=== PATIENT | male | born 1995 ===

== ENCOUNTER 2024-06-15 09:15 | Outpatient (RCR) | payer OTHER, SELFPAY ==
[2024-06-01 13:22] VITALS: BMI 39.6
[2024-06-01 13:23] VITALS: BP 128/82; PULSE 72; TEMP 37
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
--- NOTE | 2024-06-07 10:36 | HO.PHP ---
Matt is not scheduled for the program today due to having a dentist appointment that interfered. Matt will be in attendance to program tomorrow.
--- NOTE | 2024-06-09 12:53 | PC.NURSE ---
New PCP appointment on July 01, 2024 at 1:00 pm at [facility]. [address]. [address]. [address]. Office # [phone]. CALL OFFICE 5 DAYS PRIOR TO SET UP PT1 TRANSPORTATION.
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
--- NOTE | 2024-06-14 10:10 | HO.PHP ---
Matt was contacted via telephone by communications writer when he did not arrive for programming this morning. Matt answered his 's phone (the number listed for his emergency contact). Matt stated he has an appointment today so would not be able to come in for programming, stated he forgot to tell us. Pt reports he is safe, no safety concerns expressed. Pt clear, alert, forthcoming. Pt apologized and stated he will be in tomorrow for group.
--- NOTE | 2024-06-14 23:48 | PM.EVENT ---
Event Note Date of Service: 06/15/24 Event Note: Patient scheduled for follow-up today but had called out of program in the morning reportedly due to having an appointment. Will plan to follow up later in the week. Time Spent With Patient Time: Total time managing care of this patient today ____ minutes.
--- NOTE | 2024-06-15 11:37 | P.PNPSP_ITS ---
Subjective Subjective Date of Service: 06/15/24 Reason For Visit: schizoaffective d/o Medication Compliance: Yes Side effects from medications: No Attending Groups: Yes Review of Systems Patient seen for follow-up. Anticipates discharge at end of the day. He has medical and dental appointments in the next 2 days making transportation to the program difficulty. He says he is doing better . Today is a good day . He made medication changes: Abilify 10 mg which he continues taking in the AM and says he feels more balanced through the day. I had to walk past that richie yesterday and I didnt feel bothered . He says he is feeling more positive and woke up in a good mood. He continues to experience voices on and off through the day, but says they are less bothersome, denies CTAH. Severity at a 6 or 6.5 out of 10 down from an 8.5 on admission. He started on prazosin last night and slept through the night, denies having any nighmares thus far. Denies adverse effects from the med changes. He has had some bouts of diarrhea, but is not sure if this is med related. His ZOloft is noted to be at 200 mg, this was increased a few months ago. It could be related to the SSRI however he feels this was a helpful change and is reluctant to lower it. I suggest he could try for 2 days and return the dose to see if this alleviates those symptoms. He continues on clonidine PRN during the day, is aware not to take after 5pm bc of prazosin at HS. Denies any SI, HI, VH. He has a new PCP appointment on 07/01. He will be calling his psych provider later today to set up a follow up appointment. In the meantime he will check to see if he needs refills and get back to me, as he currently believes he should have enough until then. Medical Review of Systems: unchanged Mental Status Exam Mental Status Exam Narrative: Alert, oriented, in no acute distress. Mood stable, affect appropriate. Speech normal. Thought process linear, coherent, logical. Future-oriented, denies SI, AI or HI. Feeling less paranoia ideation. No delusional content elicited, transient AH, denies VH, TH. Insight and judgment good. Diagnostics Vital Signs (24Hr): BMI result Body Mass Index 39.6 Assessment & Plan Assessment & Plan (1) PTSD (post-traumatic stress disorder): Status: Acute Code(s): F43.10 - Post-traumatic stress disorder, unspecified (2) History of schizoaffective disorder: Status: Acute Code(s): Z86.59 - Personal history of other mental and behavioral disorders (3) Learning disorder: Status: Acute Code(s): F81.9 - Developmental disorder of scholastic skills, unspecified Plan Discharge from [facility] continue Abilify 10 mg qd (pt prefers AM) continue Abilify 2 mg qd in evening as needed continue clonidine 0.1 mg as BID prn (before 5pm) continue prazosin 1-2 mg QHS continue topiramate 100 mg BID continue sertraline 200 mg qAM Zoloft @200 mg x4 mos, may be causing diarrhea, thought feels it was helpful inc rease. He is encouraged to try lowering dose to 150 mg for a few days to see if this helps, then contact me next week to let me know Routine lab work, EKG were not done Patient does not need refills at this time He is calling to set up his follow-up appointment with outpatient psych provider to continue medication management Patient educated on: diagnosis, medication risk/benefits and substance abuse Informed Consent: understands Reason for contiued partial hosp. stay Substantial Risk for: stable for discharge Certification I certify that partial hospital treatment is medically necessary due to the symptoms and problems resulting from the patient's mental illness and the failure to treat the patient at the partial hospital level of care would likely result in the patient requiring inpatient psychiatric care which could not be prevented at a less intensive level of care. Total time managing care of this patient today __30__ minutes. Discharge Plan Discharge Attending provider: Yuko Phillips Additional Instructions: New PCP appointment on July 01, 2024 at 1:00 pm at [facility]. [address] [place] [address]. [address]. [address]. Office # [phone]. CALL OFFICE 5 DAYS PRIOR TO SET UP PT1 TRANSPORTATION. Medications: New prazosin 1 mg capsule 1 - 2 mg PO BEDTIME Qty: 20 0RF aripiprazole 2 mg tablet 2 mg PO DAILY Qty: 30 0RF aripiprazole 10 mg tablet 10 mg PO DAILY Qty: 30 0RF Continued sertraline [Zoloft] 100 mg tablet 200 mg PO QAM topiramate [Topamax] 100 mg tablet 100 mg PO BID Changed clonidine HCl 0.1 mg tablet 0.1 mg PO BID PRN (Reason: anxiety) Qty: 30 0RF Rx Instructions: in AM and afternoon before 5pm Discontinued aripiprazole 5 mg tablet 7.5 mg PO BEDTIME Rx Instructions: Take one and a half tabs at bedtime. Stand Alone Forms: Patient Portal Discharge page Print Language: Mauritanian Telehealth Telehealth Telehealth Platform: Telephone Location of provider rendering services: other (private office) Location of patient: other ([facility])
== END 2024-06-15 23:59 | disposition home or self-care (01) ==
LOC: HO.PHPA 09:15
PROVIDERS: Visit Provider Psychiatry & Neurology Psychiatry
DX: F43.10 Post-traumatic stress disorder, unspecified (principal); F81.9 Developmental disorder of scholastic skills, unspecified; F12.10 Cannabis abuse, uncomplicated; Z79.899 Other long term (current) drug therapy; Z86.59 Personal history of other mental and behavioral disorders
CPT/HCPCS: 90791; 90853

== ENCOUNTER 2025-04-06 09:14 | Outpatient (AMB) | payer OTHER, SELFPAY ==
--- NOTE | 2025-04-06 09:18 | A.OFFPC_ITS ---
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 // PE Request Technical Sales Support Specialist Required: No Accompanied by: Self / Same As Patient Allergies No Known Allergies Allergy (Verified 04/06/25 09:54) Medication List - Last Reconciled 04/06/25 by AMENA Gaines aripiprazole 2 mg PO DAILY aripiprazole 10 mg PO DAILY clonidine HCl 0.1 mg PO BID PRN prazosin 1 - 2 mg (1 - 2 x 1 mg) PO BEDTIME sertraline (Zoloft) 200 mg PO QAM topiramate (Topamax) 100 mg PO BID Tobacco use date assessed: 04/06/25 Dental Screening Dental Screen Date: 04/06/25 Did you have a dental visit in the last 12 months?: Yes Did you have a dental problem in the last 6 months where you did not have access to dental care?: No Was dental information given to patient?: Patient has dentist HPI 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 // PE Request HPI Details Previous PCP: [facility] Last visit:August, Last PE: Same Specialist: Psychiatry NEELIMA, Elisabeth Ramirez Therapist OBGYN:n/a Past medical history: Lazy left eye, Schizoaffective disorder, bipolar ?, depression and anxiety Medications: Family HX: Problem: Psychiatrist-every month Therapist-every week right wrist ganglion cyst inner, semi-firm- US LEFT wrist-than special, numbness in the right thumb Bilateral knee pain-xray left knee with cracking sounds with movement The patient is a 30-year-old male presenting with elevated blood pressure, ear pain, and wrist discomfort. The patient has a history of bipolar disorder, managed with regular psychiatric and therapeutic consultations. His medication regimen includes Aripiprazole, Clonidine, Prazosin, Sertraline, and Topiramate. He experiences elevated blood pressure episodes, often linked to anxiety, particularly in clinical settings. He has not been formally diagnosed with hypertension but notes anxiety-induced blood pressure spikes. The patient reports ear pain and hearing issues, diagnosed as an ear infection during the visit. He also experiences eczema around the ears. The patient has wrist pain, with a suspected ganglion cyst identified during the examination. He reports finger numbness and difficulty using the hand. [facility] Medical History (Updated 04/06/25 @ 13:15 by AMENA Gaines) PTSD (post-traumatic stress disorder) History of schizoaffective disorder Anxiety and depression No known health problems Social History Household Members: Spouse and Children Housing: Apartment Patient Tobacco Use Status: Current everyday Tobacco user Tobacco use type: Cigarette e-Cigarette/Vaping Use: Never Used service: No Current occupational status: unemployed Cognitive needs: No Hearing needs: No Vision needs: No Questionnaire PHQ-9 Over the last 2 weeks, how often have you been bothered by any of the following problems? 1. Little interest or pleasure in doing things: several days 2. Feeling down, depressed, or hopeless: not at all 3. Trouble falling or staying asleep, or sleeping too much: several days 4. Feeling tired or having little energy: not at all 5. Poor appetite or overeating: several days 6. Feeling bad about yourself - or that you are a failure or have let yourself or your family down: several days 7. Trouble concentrating on things, such as reading the newspaper or watching television: several days 8. Moving or speaking so slowly that other people could have noticed. Or the opposite - being so fidgety or restless that you have been moving around a lot more than usual: not at all 9. Thoughts that you would be better off or of hurting yourself in some way: not at all Total score: 5 Source: Developed by Drs. Manuel Childress, Cassandra Garcia, Drew Fung and colleagues, with an educational juanita from [employer] Thrive Questionnaire Date Thrive assessed: 04/06/25 I am a: Patient What is your living situation today?: I have a steady place to live Within the past 12 months, did the food you bought not last and you didn't have the money to get more?: Never true Within the past 12 months, did you worry whether your food would run out before you got money to buy more?: Never true Do you have trouble paying for medicines?: Yes Do you have trouble getting transportation to medical appointments?: No Do you have trouble paying your heating and electricity bill?: No Do you have trouble taking care of your child, family member or friend?: No Do you have trouble with day-to-day activities such as bathing, preparing meals, shopping, managing finances, etc.?: No Are you currently unemployed and looking for a job?: Yes Are you interested in more education?: No Please select the resources that you would like help with: Paying for medicine THRIVE Score: 0 AUDIT C Alcohol Use Questionnaire (AUDIT-C) 1. How often do you have a drink containing alcohol?: Never 3. How often do you have six or more drinks on one occasion?: Never Total Score: 0 MANPREET-7 AMB Questionnaire MANPREET-7 Date MANPREET - 7 assessed: 04/06/25 Feeling nervous, anxious, or on edge: 1 = Several days Not being able to stop or control worryin = Nearly every day Worrying too much about different things: 3 = Nearly every day Trouble relaxin = Several days Being so restless that it is hard to sit still: 0 = Not at all Becoming easily annoyed or irritable: 3 = Nearly every day Feeling afraid as if something awful might happen: 1 = Several days Total MANPREET-7 score (0-4 normal; 5-9 mild; 10-14 moderate; 15-21 severe): 12 Source: Developed by Drs. Manuel Childress, Cassandra Garcia, Drew Fung and colleagues, with an educational juanita from [employer] Review of Systems Const Denies headache(s) Eyes Denies loss of vision ENT Denies vertigo, Denies dizziness, Reports otalgia (Left intermittent), Denies headache(s) and Denies sore throat Card Denies chest pain, Denies leg edema and Denies lightheadedness Resp Denies cough, Denies hemoptysis and Denies wheezing GI Denies abdominal pain, Denies melena, Denies constipation, Denies diarrhea and Denies vomiting Denies dysuria, Denies urinary frequency and Denies urinary urgency Musc Reports arthralgias (Bilateral knee and right risk), Denies joint swelling, Reports numbness (Right thumb) and Denies tingling Skin/Breast Reports rash (Eczema on and off the face, head and ears) Neuro Denies Abnormal speech present, Denies behavioral changes, Denies vertigo, Denies dizziness, Denies headache(s), Denies loss of vision, Denies memory loss, Reports numbness (Right thumb) and Denies tingling Psych Reports anxiety, Denies behavioral changes, Reports depression, Denies memory loss and Denies panic attacks Yefri/Lymph Denies easy bleeding and Denies easy bruising Aller/Immun Denies wheezing Physical exam (Primary Care) Vital Signs: Last Vital Signs Temp 97 F 04/06/25 09:21 Pulse 91 04/06/25 09:21 Resp 18 04/06/25 09:21 BP 158/100 H 04/06/25 09:21 Pulse Ox 97 04/06/25 09:21 Oxygen Delivery Method Room Air 04/06/25 09:21 BMI result Body Mass Index 44.2 Tobacco/Smoking Status: Tobacco use Status Tobacco use date assessed 04/06/25 04/06/25 09:33 Patient Tobacco Use Status Current everyday Tobacco 04/06/25 09:18 Tobacco use type Cigarette 04/06/25 09:18 e-Cigarette/Vaping Use Never Used 04/06/25 09:33 PHQ-9: PHQ-9 Score PHQ-9: Total score 5 04/06/25 10:01 Thrive Assessment: Date of Thrive Assessment Date Thrive assessed 04/06/25 04/06/25 09:33 Const General: healthy appearing, no acute distress, alert and awake Nutritional Appearance: well nourished Orientation/consciousness: oriented to person, oriented to place and oriented to time HENMS Ears: TM normal on the right and TM abnormal bulging, erythematous and with loss of landmarks General nose exam: Normal nasal mucous membranes and turbinates present Eyes Conjunctivae: conjunctivae normal Sclerae: sclerae normal Pupils: Equal, round and reactive pupils present Neck Neck: Yes no lymphadenopathy and Yes no JVD Thyroid: Thyroid normal Carotids: no bruits Resp Effort & Inspection: normal respiratory effort and not tachypneic Auscultation: no crackles, no rales, no rhonchi and no wheezes Cardio Rate: regular rate Rhythm: regular rhythm Heart sounds: S1 normal heart sound present, S2 normal heart sound present, no murmurs and normal S1 and S2 GI Palpation (GI): Soft to palpation, nontender, no hepatomegaly and no splenomegaly Auscultation: normal bowel sounds Skin General skin exam: no rashes or lesions noted and dry skin Neuro General: oriented to person, oriented to place and oriented to time Cranial nerves: Yes Equal, round and reactive pupils present Speech: No Abnormal speech present Gait exam (Neuro): Normal gait present Motor exam (neuro): no tremor noted Extrem Right upper extremity: full ROM and wrist (Ganglion cyst) Left upper extremity: full ROM Right lower extremity: full ROM and knee Details: no tenderness and no swelling; no edema Left lower extremity: full ROM and knee (Cracking sound with range of motion) Details: no tenderness and no swelling; no edema Psych Mental Status: mental status grossly normal Speech and movement: Normal speech and movement present Affect: normal affect Attitude: cooperative Thought process: Normal thought process present Coding Level of Care Code New Pt Level 4 (81966) Diagnoses Anxiety and depression F41.9; F32.A Left otitis media, unspecified otitis media type H66.92 Otitis media type: unspecified History of schizoaffective disorder Z86.59 PTSD (post-traumatic stress disorder) F43.10 Chronic pain of both knees M25.561; M25.562; G89.29 Chronicity: chronic Ganglion cyst M67.40 Right wrist pain M25.531 Time Spent (min) 40 Assessment & Plan Assessment & Plan (1) Anxiety and depression: Code(s): F41.9 - Anxiety disorder, unspecified; F32.A - Depression, unspecified Category: Medical (2) Left otitis media: Code(s): H66.92 - Otitis media, unspecified, left ear Category: Medical Qualifiers: Otitis media type: unspecified Qualified Code(s): H66.92 - Otitis media, unspecified, left ear (3) History of schizoaffective disorder: Code(s): Z86.59 - Personal history of other mental and behavioral disorders Category: Medical (4) PTSD (post-traumatic stress disorder): Code(s): F43.10 - Post-traumatic stress disorder, unspecified Category: Medical (5) Bilateral knee pain: Code(s): M25.561 - Pain in right knee; M25.562 - Pain in left knee Category: Medical Qualifiers: Chronicity: chronic Qualified Code(s): M25.561 - Pain in right knee; M25.562 - Pain in left knee; G89.29 - Other chronic pain (6) Ganglion cyst: Code(s): M67.40 - Ganglion, unspecified site Category: Medical (7) Right wrist pain: Code(s): M25.531 - Pain in right wrist Category: Medical Plan The management plan involves monitoring the patient's blood pressure at home to assess for anxiety-related elevations versus chronic hypertension. A 10-day course of Augmentin is prescribed for the ear infection, with emphasis on completing the medication to prevent recurrence. The wrist issue, likely a ganglion cyst, will be evaluated with an ultrasound, and a hand specialist consultation will be arranged if needed. A follow-up appointment is scheduled in seven weeks to review lab results and plan further treatment. bilateral knee x-ray ordered to evaluate chronic knee pain. Continue current treatment for Psychiatry disorders. Denies SI/HI. Follow up with Psychiatry as scheduled Patient was informed and verbally consented to the use of an ambient scribe for clinic note documentation during this visit. Orders: Orders Comprehensive [place]. Panel Fast Today F12.10 - Cannabis abuse, uncomplicated, F43.10 - Post-traumatic stress disorder, unspecified, Z00.00 - Encounter for general adult medical examination without abnormal findings, Z86.59 - Personal history of other mental and behavioral disorders TSH reflex Free T4 Today F12.10 - Cannabis abuse, uncomplicated, F43.10 - Post- traumatic stress disorder, unspecified, Z00.00 - Encounter for general adult medical examination without abnormal findings, Z86.59 - Personal history of other mental and behavioral disorders XR Knee Santosh 3V Today M25.561 - Pain in right knee, M25.562 - Pain in left knee Complete Blood Count Auto Diff Today F12.10 - Cannabis abuse, uncomplicated, F43.10 - Post-traumatic stress disorder, unspecified, Z00.00 - Encounter for general adult medical examination without abnormal findings, Z86.59 - Personal history of other mental and behavioral disorders Lipid Panel Today F12.10 - Cannabis abuse, uncomplicated, F43.10 - Post-trauma tic stress disorder, unspecified, Z00.00 - Encounter for general adult medical examination without abnormal findings, Z86.59 - Personal history of other mental and behavioral disorders UA CC w/rflx Micro + Cult Today F12.10 - Cannabis abuse, uncomplicated, F43.10 - Post-traumatic stress disorder, unspecified, Z00.00 - Encounter for general adult medical examination without abnormal findings, Z86.59 - Personal history of other mental and behavioral disorders Vitamin D 25-OH Total Today F12.10 - Cannabis abuse, uncomplicated, F43.10 - Post-traumatic stress disorder, unspecified, Z00.00 - Encounter for general adult medical examination without abnormal findings, Z86.59 - Personal history of other mental and behavioral disorders US Extremity Nonvas Limited RT Today M25.531 - Pain in right wrist, M67.40 - Ganglion, unspecified site Medications: New amoxicillin-pot clavulanate 875-125 mg 1 tab PO BID 20 tabs 0RF 10 days
[2025-04-06 09:21] VITALS: BP 158/100; PULSE 91; RESP 18; TEMP 36.1; O2SAT 97; BMI 44.2
--- OUTSIDE RECORDS SUMMARY | 2025-04-06 09:36 | XMS_ITS | Clinical Summary ---
Author Organization [facility] it Address [address] [place] [address] Care Team Providers Care Fisher Pot Name Role Phone Unavailable Primary Care Provider Unavailabl e Social History Tobacco Use Types Packs/Day Years Used Date Smoking Tobacco: Never Assessed Sex and Gender Information Value Date Recorded Sex Assigned at Not on file Legal Sex Male 1:01 AM EST Gender Identity Not on file Sexual Orientation Not on file Plan of Treatment Health Maintenance Due Date Last Done Comments DTaP,Tdap,and Td Vaccines (1 - Tdap) 02/29/2016 Hepatitis B Vaccines (1 of 3 - 19+ 3-dose series) 02/29/2016 HIV Screening 08/03/2022 Hepatitis C Screening 08/03/2022 Social Influencers of Health Screening 08/03/2022 COVID-19 Vaccine (1 - 2023-2 5 season) 2024 Depression Screening 08/31/2024 Influenza Vaccine (#1) 2025 HIB Vaccines Aged Out No longer eligi ble based on patient's age to complete this topic HPV Vaccines Aged Out No longer eligi ble based on patient's age to complete this topic Hepatitis A Vaccines Aged Out No long er eligible based on patient's age to complete this topic IPV Vaccines Aged Out No longer eligi ble based on patient's age to complete this topic MMR Vaccines Aged Out No longer eligi ble based on patient's age to complete this topic Meningococcal ACWY Vaccine Aged Out N o longer eligible based on patient's age to complete this topic Meningococcal B Vaccine Aged Out No l onger eligible based on patient's age to complete this topic Pneumococcal Vaccine: Pediat rics (0 to 5 Years) and At-Risk Patients (6 to 49 Years) Aged Out No longer eligible b ased on patient's age to complete this topic RSV Immunization Patients Un doreen 20 months Aged Out No longer eligible b ased on patient's age to complete this topic Varicella Vaccines Aged Out No longer eligible based on patient's age to complete this topic
== END 2025-04-06 11:16 | disposition home or self-care (01) ==
LOC: HO.HMCH 09:14
DX: F41.9 Anxiety disorder, unspecified (principal); F32.A Depression, unspecified; H66.92 Otitis media, unspecified, left ear; Z86.59 Personal history of other mental and behavioral disorders; F43.10 Post-traumatic stress disorder, unspecified; M25.561 Pain in right knee; M25.562 Pain in left knee; G89.29 Other chronic pain; M67.40 Ganglion, unspecified site; M25.531 Pain in right wrist

== ENCOUNTER 2025-05-26 14:14 | Outpatient (REF) | payer OTHER, SELFPAY ==
--- NOTE | ~2025-05-26 | US_ITS ---
Exam: US Extremity Nonvas Limited Rt Technique: Grayscale and color Doppler imaging was performed through the volar wrist region. INDICATION: M67.40 - Ganglion, RT WRIST PAIN Comparison none FINDINGS: There is a anechoic collection with increased through transmission and no central blood flow measuring 6 x 3 x 7 mm. US/US Extremity Nonvas Limited RT IMPRESSION: Suspected wrist ganglion or synovial cyst measuring 6 x 3 x 7 mm. Electronically signed by: Omid Grayson MD 05/26/2025 03:10 PM EDT
--- OUTSIDE RECORDS SUMMARY | 2025-05-26 15:19 | XMS_ITS | Clinical Summary ---
Author Organization [facility] it Address [address] [place] [address] Care Team Providers Care Tax Examining Technician Name Role Phone Unavailable Primary Care Provider [...] 08/03/2022 Social Influencers of Health Screening 08/03/2022 Depression Screening 08/31/2024 COVID-19 Vaccine ( - 2023-2 5 season) 2025 Influenza Vaccine (#1) 2025 HIB Vaccines Aged [...]
== END 2025-05-26 14:15 | disposition home or self-care (01) ==
LOC: HO.US 14:14
DX: M67.40 Ganglion, unspecified site (principal); M25.531 Pain in right wrist
CPT/HCPCS: 76882

== ENCOUNTER → 2025-05-26 14:16 | Outpatient (BNV) | payer OTHER, SELFPAY | PROVIDERS: Visit Provider Radiology Diagnostic Radiology | DX: M25.531 Pain in right wrist (principal) | CPT/HCPCS: 76882 ==

== ENCOUNTER 2025-07-26 14:26 | Outpatient (AMB) | payer OTHER, SELFPAY ==
--- NOTE | 2025-07-26 14:28 | MHC.PC.OV ---
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 Accompanied by: Self / Same As Patient Allergies No Known Allergies Allergy (Verified 07/26/25 14:47) Medication List - Last Reconciled 07/26/25 by AMENA Gaines No Known Home Meds Tobacco use date assessed: 07/26/25 Dental Screening Dental Screen Date: 07/26/25 Did you have a dental visit in the last 12 months?: No Did you have a dental problem in the last 6 months where you did not have access to dental care?: No Was dental information given to patient?: No HPI HPI Comments History of Present Illness Details The patient is a 30-year-old male with past medical history of schizoaffective disorder, PTSD, cannabis abuse, bilateral knee pain, anxiety and depression The patient establish care on his previous visit and was scheduled for lab review with the appointment The patient reports that he had done his labs at the hospital, but the orders are still in place and there is no results on file The patient did have an ultrasound of his right wrist to evaluate for ganglion cyst-reviewed with patient The patient reports an intermittent scalp issue that is sometimes severe. The condition may be exacerbated by sweating. The patient has tried vjoi-tzy-quytwxq shampoos like Head & Shoulders without success. This scalp issues also affects his face, and the patient reports that he is also having large pimples on his back that are creating craters. These area can become severely itchy until the areas are scabbed over/healed. The patient reports that he had to stop all his medication because of financial difficulty, for his is only one that is working at this moment The patient was on aripiprazole 2 mg and 10 mg, clonidine 0.1 mg b.i.d. p.r.n., prazosin 1-2 mg p.o. at bedtime, sertraline 200 mg q.a.m., Topamax 100 mg b.i.d. Reports that he has been getting anxiety, but he is coping with it [facility] Medical History PTSD (post-traumatic stress disorder) History of schizoaffective disorder Anxiety and depression No known health problems Social History Household Members: Spouse and Children Housing: Apartment Patient Tobacco Use Status: Current everyday Tobacco user Tobacco use type: Cigarette e-Cigarette/Vaping Use: Never Used service: No Current occupational status: unemployed Cognitive needs: No Hearing needs: No Vision needs: No Questionnaire PHQ-9 Over the last 2 weeks, how often have you been bothered by any of the following problems? 1. Little interest or pleasure in doing things: not at all 2. Feeling down, depressed, or hopeless: not at all 3. Trouble falling or staying asleep, or sleeping too much: not at all 4. Feeling tired or having little energy: not at all 5. Poor appetite or overeating: not at all 6. Feeling bad about yourself - or that you are a failure or have let yourself or your family down: not at all 7. Trouble concentrating on things, such as reading the newspaper or watching television: not at all 8. Moving or speaking so slowly that other people could have noticed. Or the opposite - being so fidgety or restless that you have been moving around a lot more than usual: not at all 9. Thoughts that you would be better off or of hurting yourself in some way: not at all Total score: 0 Source: Developed by Drs. Manuel Childress, Cassandra Garcia, Drew Fung and colleagues, with an educational juanita from [employer]. Thrive Questionnaire Date Thrive assessed: 07/26/25 I am a: Patient What is your living situation today?: I have a steady place to live Within the past 12 months, did the food you bought not last and you didn't have the money to get more?: I choose not to answer this question Within the past 12 months, did you worry whether your food would run out before you got money to buy more?: Never true Do you have trouble paying for medicines?: No Do you have trouble getting transportation to medical appointments?: No Do you have trouble paying your heating and electricity bill?: No Do you have trouble taking care of your child, family member or friend?: No Do you have trouble with day-to-day activities such as bathing, preparing meals, shopping, managing finances, etc.?: No Are you currently unemployed and looking for a job?: Yes Are you interested in more education?: No Please select the resources that you would like help with: Job search/training Currently or been in a relationship where the following occur: No concerns reported THRIVE Score: 0 AUDIT C Alcohol Use Questionnaire (AUDIT-C) 1. How often do you have a drink containing alcohol?: Never Total Score: 0 MANPREET-7 AMB Questionnaire MANPREET-7 Date MANPREET - 7 assessed: 07/26/25 Feeling nervous, anxious, or on edge: 1 = Several days Not being able to stop or control worryin = Several days Worrying too much about different things: 1 = Several days Trouble relaxin = Several days Being so restless that it is hard to sit still: 1 = Several days Becoming easily annoyed or irritable: 1 = Several days Feeling afraid as if something awful might happen: 1 = Several days Total MANPREET-7 score (0-4 normal; 5-9 mild; 10-14 moderate; 15-21 severe): 7 Source: Developed by Drs. Manuel Childress, Cassandra Garcia, Drew Fung and colleagues, with an educational juanita from [employer]. Review of Systems Narrative Review of Systems - Integumentary: Reports an intermittent condition on the scalp, which may also affect the face and back. Const Denies headache(s) Eyes Denies loss of vision ENT Denies vertigo, Denies dizziness, Reports otalgia (Left intermittent), Denies headache(s) and Denies sore throat Card Denies chest pain, Denies leg edema and Denies lightheadedness Resp Denies cough, Denies hemoptysis and Denies wheezing GI Denies abdominal pain, Denies melena, Denies constipation, Denies diarrhea and Denies vomiting Denies dysuria, Denies urinary frequency and Denies urinary urgency Musc Reports arthralgias (Bilateral knee and right risk), Denies joint swelling, Reports numbness (Right thumb) and Denies tingling Skin/Breast Reports lesions (pimples all over his back) and Reports rash (face ) Neuro Denies Abnormal speech present, Denies behavioral changes, Denies vertigo, Denies dizziness, Denies headache(s), Denies loss of vision, Denies memory loss, Reports numbness (Right thumb) and Denies tingling Psych Reports anxiety, Denies behavioral changes, Reports depression, Denies memory loss and Denies panic attacks Yefri/Lymph Denies easy bleeding and Denies easy bruising Aller/Immun Denies wheezing Physical exam (Primary Care) Vital Signs: Last Vital Signs Pulse 93 07/26/25 14:29 Resp 18 07/26/25 14:29 BP 132/80 07/26/25 14:29 Pulse Ox 98 07/26/25 14:29 Oxygen Delivery Method Room Air 07/26/25 14:29 BMI result Body Mass Index 45.3 Tobacco/Smoking Status: Tobacco use Status Tobacco use date assessed 07/26/25 07/26/25 14:35 Patient Tobacco Use Status Current everyday Tobacco 07/26/25 14:35 Tobacco use type Cigarette 07/26/25 14:35 e-Cigarette/Vaping Use Never Used 07/26/25 14:35 PHQ-9: PHQ-9 Score PHQ-9: Total score 0 07/26/25 14:35 Thrive Assessment: Date of Thrive Assessment Date Thrive assessed 07/26/25 07/26/25 14:35 Currently or been in a relationship where the following occur: No concerns reported Narrative Physical Exam Const General: healthy appearing, no acute distress, alert and awake Nutritional Appearance: well nourished Orientation/consciousness: oriented to person, oriented to place and oriented to time [facility] Head: Yes normal to inspection Ears: hearing grossly normal bilaterally General nose exam: Normal nasal mucous membranes and turbinates present Eyes Conjunctivae: conjunctivae normal Sclerae: sclerae normal Pupils: Equal, round and reactive pupils present Neck Neck: Yes no lymphadenopathy and Yes no JVD Thyroid: Thyroid normal Carotids: no bruits Resp Effort & Inspection: normal respiratory effort and not tachypneic Auscultation: no crackles, no rales, no rhonchi and no wheezes Cardio Rate: regular rate Rhythm: regular rhythm Heart sounds: S1 normal heart sound present, S2 normal heart sound present, no murmurs and normal S1 and S2 GI Palpation (GI): Soft to palpation, nontender, no hepatomegaly and no splenomegaly Auscultation: normal bowel sounds Skin General skin exam: dry skin and other (Seborrheic dermatitis-scalp) Lesions: lesion noted (multiple scab over area) Neuro General: oriented to person, oriented to place and oriented to time Cranial nerves: Yes Equal, round and reactive pupils present Speech: No Abnormal speech present Gait exam (Neuro): Normal gait present Motor exam (neuro): no tremor noted Extrem Right upper extremity: full ROM and wrist (Ganglion cyst) Left upper extremity: full ROM Right lower extremity: full ROM and knee Details: no tenderness and no swelling; no edema Left lower extremity: full ROM and knee (Cracking sound with range of motion) Details: no tenderness and no swelling; no edema Psych Mental Status: mental status grossly normal Speech and movement: Normal speech and movement present Affect: normal affect Attitude: cooperative Thought process: Normal thought process present Coding Level of Care Code Est Pt Level 3 (28782) Diagnoses PTSD (post-traumatic stress disorder) F43.10 History of schizoaffective disorder Z86.59 Anxiety and depression F41.9; F32.A Ganglion cyst of volar aspect of right wrist M67.431 Chronic pain of both knees M25.561; M25.562; G89.29 Chronicity: chronic Seborrheic dermatitis L21.9 Acne vulgaris L70.0 Time Spent (min) 28 Assessment & Plan Assessment & Plan (1) PTSD (post-traumatic stress disorder): Code(s): F43.10 - Post-traumatic stress disorder, unspecified Category: Medical Plan: The patient on his previous visit reports that he was seen a psychiatrist and he was on medications. He reports today that he had to stopped all his medications due to financial constraints. Reports that his is only one that is working, and isn't qualified for any services. Reports that he is currently coping with everything, even though, he does get anxious. (2) History of schizoaffective disorder: Code(s): Z86.59 - Personal history of other mental and behavioral disorders Category: Medical Plan: Same as above (3) Anxiety and depression: Code(s): F41.9 - Anxiety disorder, unspecified; F32.A - Depression, unspecified Category: Medical Plan: Same as above (4) Ganglion cyst of volar aspect of right wrist: Code(s): M67.431 - Ganglion, right wrist Category: Medical Plan: ON 05/26/25 shows suspected wrist ganglion or synovial cyst measuring 6x3x7 mm. Orthopedic referral placed for the patient to see the hand specialist. (5) Bilateral knee pain: Code(s): M25.561 - Pain in right knee; M25.562 - Pain in left knee Category: Medical Qualifiers: Chronicity: chronic Qualified Code(s): M25.561 - Pain in right knee; M25.562 - Pain in left knee; G89.29 - Other chronic pain Plan: Patient complain of bilateral knee pain on his previous visit. Bilateral knee x-ray was ordered for this has not been completed as yet. Encouraged the patient to get done as soon as possible for further evaluation. (6) Seborrheic dermatitis: Code(s): L21.9 - Seborrheic dermatitis, unspecified Category: Medical Plan: The patient presents with an intermittent scalp condition that has not responded to xecm-egf-oyjujnv treatments. Reports using Selsun blue and other danger of medications like head and shoulders without any resolution. Ketoconazole 2% shampoo ordered. Instructed the patient to leave this on for 10 minutes before washing off. (7) Acne vulgaris: Code(s): L70.0 - Acne vulgaris Category: Medical Plan: Clindamycin-benzoyl peroxide 1-5% ordered to be applied 2 times a day until clearance plus 2-3 months. Consider sending the patient to dermatology, but he reports that he is having some financial hardship at this time. Will hold off for now. Orders: Referrals Orthopedics Referral M67.431 - Ganglion, right wrist Medications: New ketoconazole 2% 1 appl topical 2XW 120 mL 3RF clindamycin-benzoyl peroxide 1-5 % apply to back area two times a day until clears plus 2-3 months 1 appl topical BID 50 grams 3RF
[2025-07-26 14:29] VITALS: BP 132/80; PULSE 93; RESP 18; O2SAT 98; BMI 45.3
== END 2025-07-26 15:11 | disposition home or self-care (01) ==
LOC: HO.HMCH 14:27
DX: F43.10 Post-traumatic stress disorder, unspecified (principal); Z86.59 Personal history of other mental and behavioral disorders; F41.9 Anxiety disorder, unspecified; F32.A Depression, unspecified; M67.431 Ganglion, right wrist; M25.561 Pain in right knee; M25.562 Pain in left knee; G89.29 Other chronic pain; L21.9 Seborrheic dermatitis, unspecified; L70.0 Acne vulgaris